=== PATIENT | female | born 1985 | race Caucasian/White ===

== ENCOUNTER 2019-06-28 15:48 | Emergency (ER) | payer SELFPAY ==
[~2019-06-28] VITALS: Ht 162.6 cm; Wt 49.9 kg
[2019-06-28 15:55] VITALS: BP 116/53
[2019-06-28 16:18] LABS: BILIRUBIN,URINE NEGATIVE (NEG); CLARITY,URINE CLOUDY; COLOR,URINE AMBER; NITRITE,URINE POSITIVE (NEG); PROTEIN,URINE 100 mg/dL (NEG-TRACE)
[2019-06-28 16:30] LABS: BACTERIA,URINE FEW /HPF (0-FEW); RBC,URINE TNTC /HPF (0-2); SQUAMOUS EPITHELIAL CELL,UR OCC /LPF; WBC,URINE TNTC /HPF (0-4)
[2019-06-28] MEDS ORDERED: PHENAZOPYRIDINE 200 MG TABLET. PO ONE (16:30)
[2019-06-28] MEDS ORDERED: SULF1TAB24 PO (16:37)
[2019-06-28] MEDS ORDERED: PHEN100T82 PO (16:37)
--- NOTE | 2019-06-28 16:37 | PHYS DOC ---
Past Medical History Past Medical History: Unknown Additional Past Medical Histor: uti Past Surgical History: Tubal ligation Alcohol Use: None Drug Use: None Adult General Chief Complaint Chief Complaint: BLOOD IN URINE HPI HPI Patient is a 33 year old female who presents to the ER with complaints of dysuria x 1 month. She has been taking OTC azo with no improvement and has been also taking a probiotic. She complains of bilateral flank pain, dysuria, hematuria, urinary frequency, and urinary urgency. She denies any low back pain, fever, nausea, vomiting, or diarrhea. She currently rates her pain a 5/10 on the pain scale, there are no alleviating or exacerbating factors. ROS PT denies any fever, cough, sore throat, body aches, nausea, vomiting, or diarrhea. She denies any pelvic pain, abnormal vaginal discharge, vaginal odor, or concerns of an STI. Pt states she has suprapubic and urethral pain with urination. All other ROS is neg unless otherwise noted in HPI. Review of Systems Review of Systems See Above Current Medications Current Medications Current Medications Medications (Trade) Dose Ordered Sig/Francisco Start Time Stop Time Status Last Admin Dose Admin Phenazopyridine HCl (Pyridium) 200 mg 1X ONCE 06/28/19 16:30 06/28/19 16:31 DC 06/28/19 16:27 200 MG Allergies Allergies Allergies Coded Allergies Type Severity Reaction Last Updated Verified Penicillins Allergy Unknown 04/02/14 Yes Physical Exam Physical Exam See Above Constitutional: Well developed, well nourished, no acute distress, non-toxic appearance. [] HENT: Normocephalic, atraumatic, bilateral external ears normal, oropharynx moist, no oral exudates, nose normal. [] Eyes: PERRLA, EOMI, conjunctiva normal, no discharge. [] Neck: Normal range of motion, no stridor. [] Cardiovascular:Heart rate regular rhythm Lungs & Thorax: Bilateral breath sounds clear to auscultation [] Abdomen: Bowel sounds normal, soft, suprapubic TTP, no rebound tenderness, no masses, no pulsatile masses. [] Skin: Warm, dry, no erythema, no rash. [] Back: No CVA tenderness. [] Extremities: No cyanosis, no clubbing, ROM intact, no edema. [] Neurologic: Alert and oriented X 3, no focal deficits noted. [] Psychologic: Affect normal, judgement normal, mood normal. [] Current Patient Data Vital Signs Vital Signs Date Time Temp Pulse Resp B/P (MAP) Pulse Ox O2 Delivery O2 Flow Rate FiO2 06/28/19 15:55 98.1 93 16 116/53 (74) 97 Room Air 98.1 Lab Values Laboratory Tests Test 06/28/19 16:05 06/28/19 16:06 Urine Color Amita Urine Clarity Cloudy Urine pH 7.0 Urine Specific Effie 1.025 Urine Protein 100 mg/dL (NEG-TRACE) Urine Glucose (UA) Negative mg/dL (NEG) Urine Ketones (Stick) Negative mg/dL (NEG) Urine Blood Large (NEG) Urine Nitrite Positive (NEG) Urine Bilirubin Negative (NEG) Urine Urobilinogen Dipstick 1.0 mg/dL (0.2 mg/dL) Urine Leukocyte Esterase Large (NEG) Urine RBC Tntc /HPF (0-2) Urine WBC Tntc /HPF (0-4) Urine Squamous Epithelial Cells Occ /LPF Urine Bacteria Few /HPF (0-FEW) Urine Mucus Slight /LPF POC Urine HCG, Qualitative Hcg negative (Negative) EKG EKG [] Radiology/Procedures Radiology/Procedures [] Course & Med Decision Making Course & Med Decision Making Pertinent Labs and Imaging studies reviewed. (See chart for details) [] Dragon Disclaimer Dragon Disclaimer This electronic medical record was generated, in whole or in part, using a voice recognition dictation system. Departure Departure Impression: Primary Impression: UTI (lower urinary tract infection) Disposition: 01 HOME, SELF-CARE Condition: STABLE Referrals: NO PCP (PCP) Patient Instructions: Urinary Tract Infection, [id number] Additional Instructions: Fill prescription(s) and use as directed. Avoid bladder irritants such as caffeine, carbonation, and spicy foods. Increase clear fluids. Follow up with your primary care doctor if symptoms persist, return to the ER if symptoms worsen. Scripts Phenazopyridine Hcl (PYRIDIUM) 100 Mg Tablet 100 MG PO TID PRN for PAIN, #10 TAB 0 Refills Prov: ELIF MONTOYA APRN 06/28/19 Sulfamethoxazole/Trimethoprim (BACTRIM DS TABLET) 1 Each Tablet 1 TAB PO BID for 7 Days, #14 TAB 0 Refills Prov: ELIF MONTOYA [employer] 06/28/19 ELIF MONTOYA [employer] Jun 28, 2019 16:37
== END 2019-06-28 16:57 | disposition home or self-care (01) ==
LOC: ER 15:48
DX: N39.0 Urinary tract infection, site not specified (principal); Z98.51 Tubal ligation status; Z88.0 Allergy status to penicillin
CPT/HCPCS: 81001; 81025; 87086; 99284

== ENCOUNTER 2020-12-22 20:01 | Emergency (ER) | payer SELFPAY ==
[~2020-12-22] VITALS: Ht 162.6 cm; Wt 57.7 kg
[~2020-12-22 20:01] MED LIST: PHEN100T82 PO; SULF1TAB24 PO
[2020-12-22 20:40] VITALS: BP 110/61
[2020-12-22 20:45] LABS: BILIRUBIN,URINE NEGATIVE (NEG); CLARITY,URINE CLEAR; COLOR,URINE YELLOW; NITRITE,URINE NEGATIVE (NEG); PROTEIN,URINE NEGATIVE (NEG-TRACE); UROBILINOGEN,URINE 0.2 mg/dL (0.2 mg/dL)
[2020-12-22 20:58] LABS: BACTERIA,URINE 0 /HPF (0-FEW)
[2020-12-22] MEDS ORDERED: PHEN-318 PO (21:38)
[2020-12-22] MEDS ORDERED: NITR100C62 PO (21:38)
--- NOTE | 2020-12-22 21:38 | ED.ADGEN ---
Past Medical History Past Medical History: Unknown Additional Past Medical Histor: uti Past Surgical History: Tubal ligation Smoking Status: Current Every Day Smoker Alcohol Use: None Drug Use: None General Adult EDM: Chief Complaint: PAIN ON URINATION HPI: HPI: Patient is a 35 year old female who presents to the emergency department with concerns of urinary tract infection. She reports increased urinary frequency and some pain at the end of urination for over a week. She denies any fever, cough, body aches, fatigue, nausea, vomiting, diarrhea, abdominal pain, shortness of breath, or cough. Patient denies any irregular vaginal discharge, vaginal odor, or vaginal bleeding. Patient denies any hematuria or foul- smelling urine. She states that she has had some low back pain that she thought could be her kidneys but denies any difficulty urinating. The patient currently denies any pain. Review of Systems: Review of Systems: Complete ROS is negative unless otherwise noted in HPI. Allergies: Allergies: Allergies Coded Allergies Type Severity Reaction Last Updated Verified Penicillins Allergy Unknown 04/02/14 Yes Physical Exam: PE: See Above Constitutional: Well developed, well nourished, no acute distress, non-toxic appearance. [] HENT: Normocephalic, atraumatic, bilateral external ears normal, nose normal. [] Eyes: PERRLA, EOMI, conjunctiva normal, no discharge. [] Neck: Normal range of motion, no stridor. [] Cardiovascular:Heart rate regular rhythm Lungs & Thorax: Respirations even and unlabored, no retractions, no respiratory distress Abdomen: soft, no tenderness Back: No CVA tenderness, right lumbar paraspinal tenderness to palpation, no bony tenderness Skin: Warm, dry, no erythema, no rash. [] Extremities: No cyanosis, ROM intact, no edema. [] Neurologic: Alert and oriented X 3, no focal deficits noted. [] Psychologic: Affect normal, judgement normal, mood normal. [] Current Patient Data: Labs: Laboratory Tests Test 12/22/20 20:20 12/22/20 20:28 Urine Collection Type Void Urine Color Yellow Urine Clarity Clear Urine pH 8.0 (<5.0-8.0) Urine Specific Max <=1.005 (1.000-1.030) Urine Protein Negative mg/dL (NEG-TRACE) Urine Glucose (UA) Negative mg/dL (NEG) Urine Ketones (Stick) Negative mg/dL (NEG) Urine Blood Negative (NEG) Urine Nitrite Negative (NEG) Urine Bilirubin Negative (NEG) Urine Urobilinogen Dipstick 0.2 mg/dL (0.2 mg/dL) Urine Leukocyte Esterase Negative (NEG) Urine RBC 1-2 /HPF (0-2) Urine WBC 1-4 /HPF (0-4) Urine Squamous Epithelial Cells Few /LPF Urine Bacteria 0 /HPF (0-FEW) POC Urine HCG, Qualitative Hcg negative (Negative) EKG: EKG: [] Heart Score: Risk Factors: Risk Factors: DM, Current or recent (<one month) smoker, HTN, HLP, family history of CAD, obesity. Risk Scores: Score 0 - 3: 2.5% MACE over next 6 weeks - Discharge Home Score 4 - 6: 20.3% MACE over next 6 weeks - Admit for Clinical Observation Score 7 - 10: 72.7% MACE over next 6 weeks - Early Invasive Strategies Radiology/Procedures: Radiology/Procedures: [] Course & Med Decision Making: Course & Med Decision Making Pertinent Labs and Imaging studies reviewed. (See chart for details) Patient is a 35-year-old female who presents emergency department with concerns of urinary tract infection. I discussed the results of her urinalysis with her and advised her that low suspicion for this to be a urinary tract infection with 0 bacteria and only 1-2 white blood cells. Patient denies any other complaints. I advised her that I would prescribe Pyridium to help with the urinary discomfort and bladder spasms. I will also write a prescription for Macrobid to be filled if her symptoms worsen or fever develops. I recommended the patient increase clear fluids and avoid bladder irritants. We will also provide the patient with a list of providers in the area that is helped patients without instruments. I encouraged the patient to return to the ER if she developed a fever or worsening symptoms. The patient has been examined and was not found to have an emergency medical condition. The patient was then discharged home in stable condition to follow up with their primary care physician over the next 1-2 days. They were to return if their symptoms worsened or if they were concerned for any reason. They were also instructed to return to the emergency department if they were unable to get the recommended and appropriate follow-up. [id number] discharge instructions and return precautions were given. Patient's questions were answered to their satisfaction. Patient is comfortable with the plan of care. [] Dragon Disclaimer: Dragon Disclaimer: This electronic medical record was generated, in whole or in part, using a voice recognition dictation system. Departure Departure Impression: Primary Impression: Increased urinary frequency Disposition: 01 DC HOME SELF CARE/HOMELESS Condition: STABLE Referrals: NO PCP (PCP) Patient Instructions: Urinary Frequency Additional Instructions: Fill prescription(s) and take as directed. Avoid bladder irritants such as caffeine, carbonation, and spicy foods. Increase clear fluids. Follow up with one of the primary care providers listed below for further evaluation of this ongoing problem, return to the ER if symptoms worsen or fever develops. [facility] [address] [place] [address] [facility] [address] [place] [address] [facility] [address] [address] [facility] [address] [place] [address] [facility] [address] [place] [address] [address] [place] [address] [facility] [address] [place] [address] [facility] [address] [place] [address] [facility] [address] [place] [address] [facility] [address] [place] [address] Scripts Phenazopyridine Hcl (PYRIDIUM) 200 Mg Tablet 1 TAB PO TID for urinary discomfort for 5 Days, #15 TAB 0 Refills Prov: ELIF MONTOYA APRN 12/22/20 Nitrofurantoin Monohyd/M-Cryst (MACROBID 100 MG CAPSULE) 100 Mg Capsule 1 CAP PO BID for 7 Days, #14 CAP 0 Refills Prov: ELIF MONTOYA APRN 12/22/20 ELIF MONTOYA APRN Dec 22, 2020 21:38
== END 2020-12-22 21:43 | disposition home or self-care (01) ==
LOC: ER 20:01
DX: R35.0 Frequency of micturition (principal); R30.0 Dysuria; F17.200 Nicotine dependence, unspecified, uncomplicated; Z98.51 Tubal ligation status; Z87.440 Personal history of urinary (tract) infections; Z88.0 Allergy status to penicillin
CPT/HCPCS: 81001; 81025; 99283